=== PATIENT | female | born 1980 | race African-American/Black ===

== ENCOUNTER 2021-06-09 14:20 | Emergency (ER) | payer MEDICAID ==
[~2021-06-09] VITALS: Ht 157.5 cm; Wt 63.0 kg
[2021-06-09 14:22] VITALS: BP 149/99
[2021-06-09] MEDS ORDERED: HYDR-4622 TP (15:19)
[2021-06-09] MEDS ORDERED: DIPH25CA83 PO (15:19)
[2021-06-09] MEDS ORDERED: ALBU18HF2 IH (15:19)
[2021-06-09] MEDS ORDERED: P20 PO (15:19)
== END 2021-06-09 15:32 | disposition home or self-care (01) ==
LOC: ER 14:20
DX: S80.862A Insect bite (nonvenomous), left lower leg, initial encounter (principal); S80.861A Insect bite (nonvenomous), right lower leg, initial encounter; W57.XXXA Bitten or stung by nonvenomous insect and other nonvenomous arthropods, initial encounter; Y93.89 Activity, other specified; Y92.89 Other specified places as the place of occurrence of the external cause; Y99.8 Other external cause status
CPT/HCPCS: 99283